=== PATIENT | female | born 1980 | race Caucasian/White ===

== ENCOUNTER → 2022-06-09 | Outpatient (CLI) | payer BC | LOC: RAD 10:54 | DX: M22.42 Chondromalacia patellae, left knee (principal) ==

== ENCOUNTER 2023-09-02 21:46 | Emergency (ER) | payer BC ==
[~2023-09-02 21:46] MED LIST: Cetirizine 10 MG TAB PO ONE; predniSONE 20 MG TAB PO ONE
[2023-10-08 05:44] LABS: ALBUMIN 3.8 g/dL (3.5-5.0); CALCIUM 9.5 mg/dL (8.3-10.5); TOTAL BILIRUBIN 0.4 mg/dL (0.2-1.2); TOTAL PROTEIN 7.3 g/dL (6.4-8.3)
[2023-10-08 05:49] LABS: BASO # 0.03 K/mm3 (0.02-0.10); EOS # 0.47 K/mm3 (0.04-0.40); EOS % 4.6 % (1.0-5.0); HEMATOCRIT 40.1 % (37.0-47.0); HEMOGLOBIN 13.7 g/dL (12.5-16.0); LYMPH# 3.28 K/mm3 (1.50-4.00); MEAN CELL VOLUME 89 fl (78-100); MEAN CORPUSCULAR HEMOGLOBIN 30 pg (27-31); MEAN CORPUSCULAR HGB CONC 34 g/dL (33-37); MEAN PLATELET VOLUME 10.1 fl (7.4-10.4); NEU # 5.73 K/mm3 (1.40-6.50); PLATELET COUNT 261 K/mm3 (130-400); RED CELL DISTRIBUTION WIDTH 13.5 % (11.5-14.5); WHITE BLOOD COUNT 10.2 K/mm3 (4.8-10.8)
== END 2023-09-03 01:18 | disposition home or self-care (01) ==
LOC: ED 21:46
PROVIDERS: Nurse Practitioner
DX: T78.3XXA Angioneurotic edema, initial encounter (principal); E87.6 Hypokalemia
CPT/HCPCS: J7512